=== PATIENT | male | born 1990 | race Caucasian/White ===

== ENCOUNTER 2019-04-21 10:34 | Emergency (ER) | payer OTHER ==
[2019-04-21] MEDS ORDERED: Ketorolac 30 MG/ML SDV IM ONE (11:23)
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
--- NOTE | 2019-04-21 12:20 | CR ---
EXAMINATION: Left foot HISTORY: Pain COMPARISON: None TECHNIQUE: 3 views FINDINGS/IMPRESSION: Hairline nondisplaced fracture of the proximal fourth metatarsal, and mid third metatarsal. Mild overlying soft tissue swelling. Remaining osseous structures and joint spaces appear grossly intact.
== END 2019-04-21 13:10 | disposition home or self-care (01) ==
LOC: MW.ED 10:34
DX: S92.345A Nondisplaced fracture of fourth metatarsal bone, left foot, initial encounter for closed fracture (principal); S92.335A Nondisplaced fracture of third metatarsal bone, left foot, initial encounter for closed fracture; Z91.040 Latex allergy status; V29.9XXA Motorcycle rider (driver) (passenger) injured in unspecified traffic accident, initial encounter
CPT/HCPCS: 73630; 96372; 99283; J1885